=== PATIENT | female | born 1985 | race African-American/Black ===

== ENCOUNTER 2016-03-17 14:42 | Emergency (ER) | payer OTHER ==
[~2016-03-17] VITALS: Ht 149.9 cm; Wt 57.6 kg
[2016-03-17 15:56] VITALS: BP 117/77
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
== END 2016-03-17 16:30 | disposition home or self-care (01) ==
LOC: ER 14:42
DX: O26.893 Other specified pregnancy related conditions, third trimester (principal); R10.9 Unspecified abdominal pain; O99.89 Other specified diseases and conditions complicating pregnancy, childbirth and the puerperium; M54.6 Pain in thoracic spine; Z3A.36 36 weeks gestation of pregnancy; V43.62XA Car passenger injured in collision with other type car in traffic accident, initial encounter; Y93.89 Activity, other specified; Y92.410 Unspecified street and highway as the place of occurrence of the external cause; Y99.8 Other external cause status
CPT/HCPCS: 99285